=== PATIENT | female | born 1950 | race Caucasian/White ===

== ENCOUNTER 2019-01-21 12:51 | Outpatient (CLI) | payer MEDICARE ==
--- NOTE | 2019-01-21 14:08 | MMO ---
Bilateral MAMMO Bilat Screen [facility]. CLINICAL HISTORY: Patient is 69 years old and is seen for screening. The patient has the following family history of breast cancer: 3 cousin females. The patient has a history of cervical cancer. VIEWS: The views performed were: bilateral craniocaudal with tomosynthesis; bilateral mediolateral oblique; bilateral mediolateral oblique with tomosynthesis; and cleavage view. FILMS COMPARED: The present examination has been compared to a prior imaging study performed at [facility] on 12/11/2012. This study has been interpreted with the assistance of computer-aided detection. MAMMOGRAM FINDINGS: The breasts are almost entirely fat. There are no suspicious masses, suspicious calcifications, or new areas of architectural distortion. IMPRESSION: THERE IS NO MAMMOGRAPHIC EVIDENCE OF MALIGNANCY. A ROUTINE FOLLOW-UP MAMMOGRAM IN 1 YEAR IS RECOMMENDED. THE RESULTS OF THIS EXAM WERE SENT TO THE PATIENT. ACR BI-RADS Category 1 - Negative MAMMOGRAPHY NOTE: 1. A negative mammogram report should not delay a biopsy if a dominant of clinically suspicious mass is present. 2. Approximately 10% to 15% of breast cancers are not detected by mammography. 3. Adenosis and dense breasts may obscure an underlying neoplasm. Reported by: JANIS JULSE MD Electonically Signed: [id number]
--- NOTE | 2019-01-21 14:23 | CT ---
Lumbar spine CT without contrast: 01/21/2019 COMPARISON: None HISTORY: Radiculopathy, back pain for years TECHNIQUE: Axial CT imaging at 3 mm intervals through the lumbar spine without contrast. Coronal and sagittal reformatted imaging obtained. FINDINGS: Evaluation for central canal and/or neural foraminal stenosis is limited on routine CT. At T11-12 there is disc space narrowing with degenerative endplate change, anterior osteophyte format ion, and bilateral facet hypertrophy, right greater than left. No osseous cause of significant central canal or neural foraminal stenosis. T12-L1: Mild bilateral facet hypertrophy. No osseous cause of significant central canal or neural for aminal stenosis. L1-2: Mild bilateral facet hypertrophy. No osseous cause of significant central canal or neural maricarmen inal stenosis. L2-3: No osseous cause of significant central canal or neural foraminal stenosis L3-4: Mild bilateral facet hypertrophy. Mild bilateral neural foraminal stenosis, left greater than r ight. No osseous cause of significant central canal stenosis. L4-5: Bilateral L4 pars defects with anterolisthesis of L4 on L5 measuring 1.4 cm. There is disc spac e narrowing with prominent degenerative endplate change and vacuum disc formation. Severe bilateral neural foraminal stenosis. No osseous cause of significant central canal stenosis. L5-S1: Mild bilateral facet hypertrophy. No osseous cause of significant central canal or neural fora izabel stenosis. Of note, the L5 vertebral body is partially sacralized bilaterally. 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 There is scattered atherosclerotic calcification of the abdominal aorta and its branches. No acute fr acture. IMPRESSION: Bilateral L4 pars defects with anterolisthesis of L4 on L5 and severe bilateral neural fo raminal stenosis. Please see imaging on PACS for labeling of the vertebral bodies.
== END 2019-01-21 12:52 | disposition home or self-care (01) ==
LOC: BICMAMMO 12:51
PROVIDERS: ATTEND Anesthesiology Pain Medicine
DX: Z12.31 Encounter for screening mammogram for malignant neoplasm of breast (principal); M54.16 Radiculopathy, lumbar region; M48.061 Spinal stenosis, lumbar region without neurogenic claudication; M43.16 Spondylolisthesis, lumbar region
CPT/HCPCS: 72131; 77063; 77067

== ENCOUNTER 2019-04-29 09:18 | Outpatient (CLI) | payer MEDICARE ==
--- NOTE | 2019-04-29 11:24 | RAD ---
LUMBAR SPINE SERIES 4 VIEWS INCLUDING FLEXION AND EXTENSION WEIGHT BEARING VIEWS: HISTORY: Back pain with pain going down both legs. FINDINGS: Bones appear demineralized. There is mild scoliotic change convex to the left. The vertebral bodies maintain normal height. There is severe disk narrowing and a marked spondylolisthesis of L4 on L5 o f approximately 2 cm. I do not see a definite change between the flexion and extension views. Mild disk narrowing at L5-S1 is noted. Pars defects at the L4-5 level are seen. IMPRESSION: Severe spondylolisthesis of L4 on L5 not definitely changing in flexion and extension views. POS: KAYLEEN
== END 2019-04-29 09:19 | disposition home or self-care (01) ==
LOC: BICRAD 09:18
PROVIDERS: ATTEND Anesthesiology Pain Medicine
DX: M43.16 Spondylolisthesis, lumbar region (principal)
CPT/HCPCS: 72110